=== PATIENT | male | born 1995 | race Two or more races ===

== ENCOUNTER 2017-02-17 21:13 | Emergency (ER) | payer OTHER ==
[2017-02-17 21:30] VITALS: BP 128/85; PULSE 99; RESP 18; TEMP 99.1; O2SAT 94
--- NOTE | 2017-02-17 22:04 | EDPHY ---
H & P Stated Complaint: L wrist swelling post lifting couch Time Seen by Provider: 02/17/17 21:51 HPI/ROS: CHIEF COMPLAINT: Left forearm swelling HISTORY OF PRESENT ILLNESS: Patient is a 22-year-old healthy man who was caring couch when he hit the door and he noticed a bump or a pop in his left proximal forearm. He has normal range of motion and no tenderness to palpation. He noticed a small bump over his forearm on the radial aspect. He states that the pain shot down to his fingers. Is now improved. REVIEW OF SYSTEMS: Constitutional: denies: chills, fever, recent illness, recent injury EENTM: denies: blurred vision, double vision, nose congestion Respiratory: denies: cough, shortness of breath Cardiac: denies: chest pain, irregular heart rate, lightheadedness, palpitations Gastrointestinal/Abdominal: denies: abdominal pain, diarrhea, nausea, vomiting, blood streaked stools Genitourinary: denies: dysuria, frequency, hematuria, pain Musculoskeletal: See HPI Skin: denies: lesions, rash, jaundice, bruising Neurological: denies: headache, numbness, paresthesia, tingling, dizziness, weakness Hematologic/Lymphatic: denies: blood clots, easy bleeding, easy bruising Immunologic/allergic: denies: HIV/AIDS, transplant EXAM: GENERAL: Well-appearing, well-nourished and in no acute distress. HEAD: Atraumatic, normocephalic. EYES: Pupils equal round and reactive to light, extraocular movements intact, sclera anicteric, conjunctiva are normal. ENT: TMs normal, nares patent, oropharynx clear without exudates. Moist mucous membranes. NECK: Normal range of motion, supple without lymphadenopathy or JVD. LUNGS: Breath sounds clear to auscultation bilaterally and equal. No wheezes rales or rhonchi. HEART: Regular rate and rhythm without murmurs, rubs or gallops. ABDOMEN: Soft, nontender, normoactive bowel sounds. No guarding, no rebound. No masses appreciated. BACK: No CVA tenderness, no spinal tenderness, step-offs or deformities EXTREMITIES: Small hematoma to left forearm. No tenderness. Normal range of motion, normal sensation and pulses NEUROLOGICAL: Cranial nerves II through XII grossly intact. Normal speech, normal gait. 5/5 strength, normal movement in all extremities, normal sensation PSYCH: Normal mood, normal affect. SKIN: Warm, dry, normal turgor, no visible rashes or lesions. Source: Patient Exam Limitations: No limitations - Personal History Current Tetanus/Diphtheria Vaccine: Unsure Current Tetanus Diphtheria and Acellular Pertussis (TDAP): Unsure - Medical/Surgical History Hx Asthma: No Hx Chronic Respiratory Disease: No Hx Diabetes: No Hx Cardiac Disease: No Hx Renal Disease: No Hx Cirrhosis: No Hx Alcoholism: No Hx HIV/AIDS: No Hx Splenectomy or Spleen Trauma: No Other PMH: L ACL + Meniscus repair. - Family History Significant Family History: No pertinent family hx - Social History Smoking Status: Never smoked Alcohol Use: Sober Drug Use: None Constitutional: Initial Vital Signs Temperature (C) 37.3 C 02/17/17 21:26 Heart Rate 99 02/17/17 21:26 Respiratory Rate 18 02/17/17 21:26 Blood Pressure 128/85 H 02/17/17 21:26 O2 Sat (%) 94 02/17/17 21:26 O2 Delivery Mode Room Air Allergies/Adverse Reactions: No Known Allergies Allergy (Unverified 02/17/17 21:25) Home Medications: Medication Instructions Recorded [facility] 02/17/17 Medical Decision Making ED Course/Re-evaluation: The patient has mild swelling over the abductor pollicis longus and extensor pollicis brevis. Normal range of motion and strength in fingers and thumb. No pain with movement. Suspect he has a contusion or maybe mild muscle tear. We discussed ice, anti-inflammatories and Paddy wraps. He is happy with this plan. I also recommended he rest it. He declines further workup or testing at this time. He does not feel that imaging is necessary neither do I. Differential Diagnosis: Partial list of the Differential diagnosis considered include but were not limited to; contusion, muscle tear, tendon injury and although unlikely based on the history and physical exam, I also considered nerve injury, vascular injury, fracture. I discussed these differential diagnoses and the plan with the patient as well as the usual and expected course. The patient understands that the diagnosis is provisional and that in medicine we are not always correct and that further workup is often warranted. Usual and customary warnings were given. All of the patient's questions were answered. The patient was instructed to return to the emergency department should the symptoms at all worsen or return, otherwise to followup with the physician as we discussed. Departure - Departure Disposition: Home, Routine, Self-Care Clinical Impression: Muscle tear Condition: Fair Instructions: Arm Pain (ED) Referrals: KENA NICOLE,. [Primary Care Provider] - As per Instructions
== END 2017-02-17 22:22 | disposition home or self-care (01) ==
LOC: CED 21:13
DX: S56.912A Strain of unspecified muscles, fascia and tendons at forearm level, left arm, initial encounter (principal); W22.8XXA Striking against or struck by other objects, initial encounter; Y92.009 Unspecified place in unspecified non-institutional (private) residence as the place of occurrence of the external cause; Y99.8 Other external cause status; Y93.89 Activity, other specified